=== PATIENT | female | born 1940 | race Two or more races ===

== ENCOUNTER 2020-11-09 09:26 | Emergency (ER) | payer OTHER ==
[~2020-11-09] VITALS: Ht 165.1 cm; Wt 70.8 kg
[2020-11-09] MEDS ORDERED: SIMVASTATIN80 MG (09:44)
[2020-11-09] MEDS ORDERED: VERELAN240 MG (09:44)
[2020-11-09] MEDS ORDERED: AMLODIPINE-OLM1 EAC2 (09:45)
[2020-11-09] MEDS ORDERED: METOPROLOL SUC100 MG (09:45)
[2020-11-09] MEDS ORDERED: ZESTRIL40 M1 (09:46)
[2020-11-09] MEDS ORDERED: HYDROCHLOROTHIA25 MG (09:46)
[2020-11-09] MEDS ORDERED: LEVSIN/SL0.125 MG SL (14:34)
[2020-11-09] MEDS ORDERED: PEPCID AC20 MG PO (14:34)
== END 2020-11-09 15:22 | disposition home or self-care (01) ==
LOC: ER 09:26
DX: K29.70 Gastritis, unspecified, without bleeding (principal); R10.13 Epigastric pain